=== PATIENT | male | born 1990 | race American Indian/Alaskan Native ===

== ENCOUNTER 2019-02-14 02:17 | Emergency (ER) | payer SELFPAY ==
[2019-02-14] MEDS ORDERED: Sodium Chloride 0.9% 10 ML Syringe FLUSH PRN (02:39)
[2019-02-14] MEDS ORDERED: Sodium Chloride 0.9% 1,000 ML IV ONE ×2 (02:39→02:58)
[2019-02-14 03:00] LABS: BARBITURATE SCREEN,URINE NEGATIVE (NEGATIVE); BENZODIAZEPINES SCREEN,URINE NEGATIVE (NEGATIVE); EDDP,URINE SCREEN NEGATIVE (NEGATIVE); METHAMPHETAMINE SCREEN, URINE NEGATIVE (NEGATIVE); TCA SCREEN,URINE NEGATIVE (NEGATIVE); THC SCREEN,URINE 50 NG/ML NEGATIVE (NEGATIVE)
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
[2019-02-14 03:17] LABS: CHLORIDE,CL 107 mmol/L (98-107); SODIUM,NA 144 mmol/L (136-145)
[2019-02-14 03:18] LABS: ANION GAP 17.4 mmol/L (10-20)
== END 2019-02-14 03:45 ==
LOC: VM.ED 02:17
DX: F10.129 Alcohol abuse with intoxication, unspecified (principal); Y90.8 Blood alcohol level of 240 mg/100 ml or more
CPT/HCPCS: 36415; 80053; 80305; 80320; 83735; 85025; 96360; 99285; J7030; 99283-GF; G0480

== ENCOUNTER 2019-07-17 20:46 | Emergency (ER) | payer OTHER ==
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
== END 2019-07-17 21:00 | disposition home or self-care (01) ==
LOC: VM.ED 20:46
DX: Z02.89 Encounter for other administrative examinations (principal)
CPT/HCPCS: 99283; 99283-GF

== ENCOUNTER 2019-09-17 18:57 | Emergency (ER) | payer SELFPAY ==
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
== END 2019-09-17 19:20 ==
LOC: VM.ED 18:57
DX: F10.920 Alcohol use, unspecified with intoxication, uncomplicated (principal); E11.9 Type 2 diabetes mellitus without complications
CPT/HCPCS: 99283-GF; 99284

== ENCOUNTER 2021-02-15 18:54 | Observation (INO) | payer MEDICAID ==
[2021-02-15] MEDS ORDERED: Sodium Chloride 0.9% 10 ML Syringe FLUSH PRN (19:56)
[2021-02-15] MEDS ORDERED: Lactated Ringers 1,000 ML IV ONE (20:02)
[2021-02-15] MEDS ORDERED: Lactulose Soln 10 GM/15 ML 30 ML UD Cup PO ONE ×2 (20:12→20:25)
[2021-02-15] MEDS ORDERED: Iopamidol 612 MG/ML 100 ML Bottle IVPUSH ONE (20:13)
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
[2021-02-15 20:47] LABS: PTT,PARTIAL THROMBOPLSTIN TIME 33.6 SEC (25.6-32.8)
[2021-02-15] MEDS ORDERED: cefTRIAXone 1 GM Vial IVPUSH ONE (20:54)
[2021-02-15 21:00] LABS: CHLORIDE,CL 98 mmol/L (98-107); SODIUM,NA 133 mmol/L (136-145)
[2021-02-15 21:04] LABS: ANION GAP 7.6 mmol/L (5-15)
[2021-02-15 21:05] LABS: ACETAMINOPHEN 0 ug/ml (10-30)
--- NOTE | 2021-02-15 21:24 | CT ---
[id number] CT/CT Abdomen Pelvis W IV EXAM: CT Abdomen Pelvis W IV CLINICAL DATA: RUQ PAIN COMPARISON STUDY: None. FINDINGS: Hepatomegaly and diffuse steatosis. Heterogeneous parenchymal enhancement can also be seen with underlying hepatocellular disease. Portal hypertension, including borderline splenomegaly, portal vein dilation up to 18 mm, recanalization of umbilical vein, varices in the upper abdomen, and ascites. Diffuse gallbladder wall thickening/edema. Edematous appearance of the proximal small bowel wall, and ascending segment of the colon. Those findings can also be seen with changes of portal hypertension. No evidence of viscus perforation. No drainable fluid collection. IMPRESSION: Hepatomegaly and abnormal parenchymal density/enhancement consistent with underlying steatosis and/or hepatocellular disease. Changes of portal hypertension, described in detail above. Correlate with LFTs. Joe Vazquez MD 02/15/21 [id number] Thank you for allowing us to participate in the care of your patient.
[2021-02-15] MEDS: Sodium Chloride 0.9% 1,000 ML IV SCH (23:15)
[2021-02-16] MEDS: Sodium Chloride 0.9% 1,000 ML IV SCH ×2 (05:57→19:05)
[2021-02-16 07:02] LABS: HEMOGLOBIN A1C 9.2 % (<5.7)
[2021-02-16 07:18] LABS: ANION GAP 8.7 mmol/L (5-15); CHLORIDE,CL 102 mmol/L (98-107); SODIUM,NA 135 mmol/L (136-145)
[2021-02-16] MEDS: Lactulose Soln 10 GM/15 ML 30 ML UD Cup PO SCH ×3 (08:00→20:31)
[2021-02-16] MEDS ORDERED: cefTRIAXone 1 GM Vial IVPUSH SCH ×2 (10:00→20:00)
--- NOTE | 2021-02-16 14:48 | PCM.PN ---
- General Info Date of Service: 02/16/21 Admission Dx/Problem (Free Text): Hyperbilirubinemia Elevated ammonia UTI Subjective Update: This is hospital day 1 of this patient who was admitted for acute hyperbilirubinemia in the presence of most likely alcoholic hepatitis. Patient has been hydrated with fluid over the night. And started on lactulose. He actually feels quite a bit better today. He has had no nausea or vomiting. His abdominal pain is resolved. He has been very hungry and thirsty most of the day. He has had about 5-7 bowel movements today that have been quite loose. He actually feels very good than when he initially came in. He has no fever no chills. No chest pain no shortness of breath or difficulty breathing. No hematuria dysuria urinary frequency. No itching. No confusions hallucinations. The sleepiness that he had yesterday has resolved. He has had an excellent appetite and he has been eating quite a bit today. - Patient Data Vitals - Most Recent: Last Vital Signs Temp 97.9 F 02/16/21 11:27 Pulse 84 02/16/21 11:27 Resp 21 H 02/16/21 11:27 BP 100/51 L 02/16/21 11:27 Pulse Ox 96 02/16/21 11:27 Weight - Most Recent: 158 lb I&O - Last 24 Hours: Intake & Output 02/15/21 02/16/21 02/16/21 22:59 06:59 14:59 Intake Total 1000 1000 120 Balance 1000 1000 120 Lab Results Last 24 Hours: Laboratory Results - last 24 hr 02/15/21 02/15/21 02/15/21 Range/Units 20:00 20:05 20:05 WBC 10.9 H (4.0-10.0) x10^3/uL RBC 3.90 L (4.5-6.0) x10^6/uL Hgb 13.5 L (14.0-18.0) g/dL Hct 37.9 L (40.0-52.0) % MCV 97.2 H (78.0-93.0) fL MCH 34.6 H (26.0-32.0) pg MCHC 35.6 (32.0-36.0) g/dL RDW Coeff of Dusty 14.6 (10.0-15.0) % Plt Count 302 (130-400) x10^3/uL Immature Gran % (Auto) 0.20 (0.00-0.43) % Neut % (Auto) 69.8 (50.0-80.0) % Lymph % (Auto) 16.3 L (25.0-50.0) % Hill % (Auto) 10.7 (2.0-11.0) % Eos % (Auto) 2.4 (0.0-4.0) % Baso % (Auto) 0.6 (0.2-1.2) % Neut # (Auto) 7.6 (1.8-7.7) x10^3/uL Lymph # (Auto) 1.8 (1.0-4.8) x10^3/uL Hill # (Auto) 1.2 H (0.0-0.8) x10^3/uL Eos # (Auto) 0.3 (0.0-0.5) x10^3/uL Baso # (Auto) 0.1 (0.0-0.2) x10^3/uL Immature Gran # (Auto) 0.02 (0.00-0.07) x10^3/uL PT 16.6 H (9.9-12.5) SEC INR 1.5 L (2.0-3.5) APTT 33.6 H (25.6-32.8) SEC Sodium (136-145) mmol/L Potassium (3.5-5.1) mmol/L Chloride (98-107) mmol/L Carbon Dioxide (21-32) mmol/L Anion Gap (5-15) mmol/L BUN (7-18) mg/dL Creatinine (0.70-1.30) mg/dL Est Cr Clr Drug Dosing mL/min Estimated GFR (MDRD) Glucose (70-99) mg/dL POC Glucose (70-99) mg/dL Hemoglobin A1c (<5.7) % Lactic Acid (0.4-2.0) mmol/L Calcium (8.5-10.1) mg/dL Corrected Calcium (8.5-10.1) mg/dL Phosphorus (2.6-4.7) mg/dL Total Bilirubin (0.2-1.0) mg/dL Direct Bilirubin (0.00-0.20) mg/dL AST (15-37) U/L ALT (16-63) U/L Alkaline Phosphatase (46-116) U/L Ammonia (19-54) ug/dL Total Protein (6.4-8.2) g/dL Albumin (3.4-5.0) g/dL Globulin Albumin/Globulin Ratio Lipase (73-393) U/L Urine Color Brown H (YELLOW) Urine Appearance Slightly cloudy H (CLEAR) Urine pH 6.0 (5.0-8.0) Ur Specific Franklin 1.020 Urine Protein 100 H (NEGATIVE) mg/dL Urine Glucose (UA) 100 H (NEGATIVE) mg/dL Urine Ketones 15 H (NEGATIVE) mg/dL Urine Occult Blood Negative (NEGATIVE) Urine Nitrite Negative (NEGATIVE) Urine Bilirubin Large H (NEGATIVE) Urine Urobilinogen 1.0 (0.2) EU/dL Ur Leukocyte Esterase Large H (NEGATIVE) U Hyaline Cast (Auto) Few Urine RBC 0-5 (NOT SEEN) /HPF Urine WBC 10-20 H (NOT SEEN) /HPF Ur Squamous Epith Cells Rare (NOT SEEN) /HPF Amorphous Sediment Rare Urine Bacteria Occasional H (NOT SEEN) /HPF Urine Mucus Few H (NOT SEEN) /LPF Acetaminophen (10-30) ug/ml Ethyl Alcohol (0-3) mg/dL SARS CoV-2 RNA Rapid DIYA (NEGATIVE) SHAD, Poly Interpret Direct AHG Gel w SADE 02/15/21 02/15/21 02/15/21 Range/Units 20:05 20:05 20:05 WBC (4.0-10.0) x10^3/uL RBC (4.5-6.0) x10^6/uL Hgb (14.0-18.0) g/dL Hct (40.0-52.0) % MCV (78.0-93.0) fL MCH (26.0-32.0) pg MCHC (32.0-36.0) g/dL RDW Coeff of Dusty (10.0-15.0) % Plt Count (130-400) x10^3/uL Immature Gran % (Auto) (0.00-0.43) % Neut % (Auto) (50.0-80.0) % Lymph % (Auto) (25.0-50.0) % Hill % (Auto) (2.0-11.0) % Eos % (Auto) (0.0-4.0) % Baso % (Auto) (0.2-1.2) % Neut # (Auto) (1.8-7.7) x10^3/uL Lymph # (Auto) (1.0-4.8) x10^3/uL Hill # (Auto) (0.0-0.8) x10^3/uL Eos # (Auto) (0.0-0.5) x10^3/uL Baso # (Auto) (0.0-0.2) x10^3/uL Immature Gran # (Auto) (0.00-0.07) x10^3/uL PT (9.9-12.5) SEC INR (2.0-3.5) APTT (25.6-32.8) SEC Sodium 133 L (136-145) mmol/L Potassium 3.6 (3.5-5.1) mmol/L Chloride 98 (98-107) mmol/L Carbon Dioxide 31 D (21-32) mmol/L Anion Gap 7.6 (5-15) mmol/L BUN 6 L (7-18) mg/dL Creatinine 0.6 L (0.70-1.30) mg/dL Est Cr Clr Drug Dosing 169.84 mL/min Estimated GFR (MDRD) > 60 Glucose 144 H (70-99) mg/dL POC Glucose (70-99) mg/dL Hemoglobin A1c (<5.7) % Lactic Acid 1.8 (0.4-2.0) mmol/L Calcium 7.8 L (8.5-10.1) mg/dL Corrected Calcium 9.1 (8.5-10.1) mg/dL Phosphorus (2.6-4.7) mg/dL Total Bilirubin 25.7 H* (0.2-1.0) mg/dL Direct Bilirubin 20.82 H (0.00-0.20) mg/dL AST 231 H (15-37) U/L ALT 261 H (16-63) U/L Alkaline Phosphatase 194 H (46-116) U/L Ammonia 31 (19-54) ug/dL Total Protein 6.8 (6.4-8.2) g/dL Albumin 2.4 L (3.4-5.0) g/dL Globulin 4.4 Albumin/Globulin Ratio 0.55 Lipase 38 L (73-393) U/L Urine Color (YELLOW) Urine Appearance (CLEAR) Urine pH (5.0-8.0) Ur Specific Franklin Urine Protein (NEGATIVE) mg/dL Urine Glucose (UA) (NEGATIVE) mg/dL Urine Ketones (NEGATIVE) mg/dL Urine Occult Blood (NEGATIVE) Urine Nitrite (NEGATIVE) Urine Bilirubin (NEGATIVE) Urine Urobilinogen (0.2) EU/dL Ur Leukocyte Esterase (NEGATIVE) U Hyaline Cast (Auto) Urine RBC (NOT SEEN) /HPF Urine WBC (NOT SEEN) /HPF Ur Squamous Epith Cells (NOT SEEN) /HPF Amorphous Sediment Urine Bacteria (NOT SEEN) /HPF Urine Mucus (NOT SEEN) /LPF Acetaminophen 0 L (10-30) ug/ml Ethyl Alcohol < 3 (0-3) mg/dL SARS CoV-2 RNA Rapid DIYA (NEGATIVE) SHAD, Poly Interpret Direct AHG Gel w SADE 02/15/21 02/15/21 02/16/21 Range/Units 20:05 22:46 06:45 WBC 9.4 (4.0-10.0) x10^3/uL RBC 3.42 L (4.5-6.0) x10^6/uL Hgb 11.8 L D (14.0-18.0) g/dL Hct 33.2 L (40.0-52.0) % MCV 97.1 H (78.0-93.0) fL MCH 34.5 H (26.0-32.0) pg MCHC 35.5 (32.0-36.0) g/dL RDW Coeff of Dusty 14.8 (10.0-15.0) % Plt Count 241 (130-400) x10^3/uL Immature Gran % (Auto) 0.10 (0.00-0.43) % Neut % (Auto) 68.7 (50.0-80.0) % Lymph % (Auto) 15.9 L (25.0-50.0) % Hill % (Auto) 11.4 H (2.0-11.0) % Eos % (Auto) 3.2 (0.0-4.0) % Baso % (Auto) 0.7 (0.2-1.2) % Neut # (Auto) 6.5 (1.8-7.7) x10^3/uL Lymph # (Auto) 1.5 (1.0-4.8) x10^3/uL Hill # (Auto) 1.1 H (0.0-0.8) x10^3/uL Eos # (Auto) 0.3 (0.0-0.5) x10^3/uL Baso # (Auto) 0.1 (0.0-0.2) x10^3/uL Immature Gran # (Auto) 0.01 (0.00-0.07) x10^3/uL PT (9.9-12.5) SEC INR (2.0-3.5) APTT (25.6-32.8) SEC Sodium (136-145) mmol/L Potassium (3.5-5.1) mmol/L Chloride (98-107) mmol/L Carbon Dioxide (21-32) mmol/L Anion Gap (5-15) mmol/L BUN (7-18) mg/dL Creatinine (0.70-1.30) mg/dL Est Cr Clr Drug Dosing mL/min Estimated GFR (MDRD) Glucose (70-99) mg/dL POC Glucose (70-99) mg/dL Hemoglobin A1c (<5.7) % Lactic Acid (0.4-2.0) mmol/L Calcium (8.5-10.1) mg/dL Corrected Calcium (8.5-10.1) mg/dL Phosphorus (2.6-4.7) mg/dL Total Bilirubin (0.2-1.0) mg/dL Direct Bilirubin (0.00-0.20) mg/dL AST (15-37) U/L ALT (16-63) U/L Alkaline Phosphatase (46-116) U/L Ammonia (19-54) ug/dL Total Protein (6.4-8.2) g/dL Albumin (3.4-5.0) g/dL Globulin Albumin/Globulin Ratio Lipase (73-393) U/L Urine Color (YELLOW) Urine Appearance (CLEAR) Urine pH (5.0-8.0) Ur Specific Franklin Urine Protein (NEGATIVE) mg/dL Urine Glucose (UA) (NEGATIVE) mg/dL Urine Ketones (NEGATIVE) mg/dL Urine Occult Blood (NEGATIVE) Urine Nitrite (NEGATIVE) Urine Bilirubin (NEGATIVE) Urine Urobilinogen (0.2) EU/dL Ur Leukocyte Esterase (NEGATIVE) U Hyaline Cast (Auto) Urine RBC (NOT SEEN) /HPF Urine WBC (NOT SEEN) /HPF Ur Squamous Epith Cells (NOT SEEN) /HPF Amorphous Sediment Urine Bacteria (NOT SEEN) /HPF Urine Mucus (NOT SEEN) /LPF Acetaminophen (10-30) ug/ml Ethyl Alcohol (0-3) mg/dL SARS CoV-2 RNA Rapid DIYA Negative (NEGATIVE) SHAD, Poly Interpret Direct AHG Gel w SADE Positive 02/16/21 02/16/21 02/16/21 Range/Units 06:45 06:45 06:45 WBC (4.0-10.0) x10^3/uL RBC (4.5-6.0) x10^6/uL Hgb (14.0-18.0) g/dL Hct (40.0-52.0) % MCV (78.0-93.0) fL MCH (26.0-32.0) pg MCHC (32.0-36.0) g/dL RDW Coeff of Dusty (10.0-15.0) % Plt Count (130-400) x10^3/uL Immature Gran % (Auto) (0.00-0.43) % Neut % (Auto) (50.0-80.0) % Lymph % (Auto) (25.0-50.0) % Hill % (Auto) (2.0-11.0) % Eos % (Auto) (0.0-4.0) % Baso % (Auto) (0.2-1.2) % Neut # (Auto) (1.8-7.7) x10^3/uL Lymph # (Auto) (1.0-4.8) x10^3/uL Hill # (Auto) (0.0-0.8) x10^3/uL Eos # (Auto) (0.0-0.5) x10^3/uL Baso # (Auto) (0.0-0.2) x10^3/uL Immature Gran # (Auto) (0.00-0.07) x10^3/uL PT (9.9-12.5) SEC INR (2.0-3.5) APTT (25.6-32.8) SEC Sodium 135 L (136-145) mmol/L Potassium 3.7 (3.5-5.1) mmol/L Chloride 102 (98-107) mmol/L Carbon Dioxide 28 (21-32) mmol/L Anion Gap 8.7 (5-15) mmol/L BUN 6 L (7-18) mg/dL Creatinine 0.5 L (0.70-1.30) mg/dL Est Cr Clr Drug Dosing 203.81 mL/min Estimated GFR (MDRD) > 60 Glucose 184 H (70-99) mg/dL POC Glucose (70-99) mg/dL Hemoglobin A1c (<5.7) % Lactic Acid 1.8 (0.4-2.0) mmol/L Calcium 7.2 L (8.5-10.1) mg/dL Corrected Calcium 8.9 (8.5-10.1) mg/dL Phosphorus 3.1 (2.6-4.7) mg/dL Total Bilirubin 21.0 H* (0.2-1.0) mg/dL Direct Bilirubin 15.46 H (0.00-0.20) mg/dL AST 175 H (15-37) U/L ALT 195 H (16-63) U/L Alkaline Phosphatase 147 H (46-116) U/L Ammonia 102 H (19-54) ug/dL Total Protein 5.5 L (6.4-8.2) g/dL Albumin 1.9 L (3.4-5.0) g/dL Globulin 3.6 Albumin/Globulin Ratio 0.53 Lipase (73-393) U/L Urine Color (YELLOW) Urine Appearance (CLEAR) Urine pH (5.0-8.0) Ur Specific Franklin Urine Protein (NEGATIVE) mg/dL Urine Glucose (UA) (NEGATIVE) mg/dL Urine Ketones (NEGATIVE) mg/dL Urine Occult Blood (NEGATIVE) Urine Nitrite (NEGATIVE) Urine Bilirubin (NEGATIVE) Urine Urobilinogen (0.2) EU/dL Ur Leukocyte Esterase (NEGATIVE) U Hyaline Cast (Auto) Urine RBC (NOT SEEN) /HPF Urine WBC (NOT SEEN) /HPF Ur Squamous Epith Cells (NOT SEEN) /HPF Amorphous Sediment Urine Bacteria (NOT SEEN) /HPF Urine Mucus (NOT SEEN) /LPF Acetaminophen (10-30) ug/ml Ethyl Alcohol (0-3) mg/dL SARS CoV-2 RNA Rapid DIYA (NEGATIVE) SHAD, Poly Interpret Direct AHG Gel w SADE 02/16/21 02/16/21 Range/Units 06:45 11:44 WBC (4.0-10.0) x10^3/uL RBC (4.5-6.0) x10^6/uL Hgb (14.0-18.0) g/dL Hct (40.0-52.0) % MCV (78.0-93.0) fL MCH (26.0-32.0) pg MCHC (32.0-36.0) g/dL RDW Coeff of Dusty (10.0-15.0) % Plt Count (130-400) x10^3/uL Immature Gran % (Auto) (0.00-0.43) % Neut % (Auto) (50.0-80.0) % Lymph % (Auto) (25.0-50.0) % Hill % (Auto) (2.0-11.0) % Eos % (Auto) (0.0-4.0) % Baso % (Auto) (0.2-1.2) % Neut # (Auto) (1.8-7.7) x10^3/uL Lymph # (Auto) (1.0-4.8) x10^3/uL Hill # (Auto) (0.0-0.8) x10^3/uL Eos # (Auto) (0.0-0.5) x10^3/uL Baso # (Auto) (0.0-0.2) x10^3/uL Immature Gran # (Auto) (0.00-0.07) x10^3/uL PT (9.9-12.5) SEC INR (2.0-3.5) APTT (25.6-32.8) SEC Sodium (136-145) mmol/L Potassium (3.5-5.1) mmol/L Chloride (98-107) mmol/L Carbon Dioxide (21-32) mmol/L Anion Gap (5-15) mmol/L BUN (7-18) mg/dL Creatinine (0.70-1.30) mg/dL Est Cr Clr Drug Dosing mL/min Estimated GFR (MDRD) Glucose (70-99) mg/dL POC Glucose 109 H (70-99) mg/dL Hemoglobin A1c 9.2 H (<5.7) % Lactic Acid (0.4-2.0) mmol/L Calcium (8.5-10.1) mg/dL Corrected Calcium (8.5-10.1) mg/dL Phosphorus (2.6-4.7) mg/dL Total Bilirubin (0.2-1.0) mg/dL Direct Bilirubin (0.00-0.20) mg/dL AST (15-37) U/L ALT (16-63) U/L Alkaline Phosphatase (46-116) U/L Ammonia (19-54) ug/dL Total Protein (6.4-8.2) g/dL Albumin (3.4-5.0) g/dL Globulin Albumin/Globulin Ratio Lipase (73-393) U/L Urine Color (YELLOW) Urine Appearance (CLEAR) Urine pH (5.0-8.0) Ur Specific Franklin Urine Protein (NEGATIVE) mg/dL Urine Glucose (UA) (NEGATIVE) mg/dL Urine Ketones (NEGATIVE) mg/dL Urine Occult Blood (NEGATIVE) Urine Nitrite (NEGATIVE) Urine Bilirubin (NEGATIVE) Urine Urobilinogen (0.2) EU/dL Ur Leukocyte Esterase (NEGATIVE) U Hyaline Cast (Auto) Urine RBC (NOT SEEN) /HPF Urine WBC (NOT SEEN) /HPF Ur Squamous Epith Cells (NOT SEEN) /HPF Amorphous Sediment Urine Bacteria (NOT SEEN) /HPF Urine Mucus (NOT SEEN) /LPF Acetaminophen (10-30) ug/ml Ethyl Alcohol (0-3) mg/dL SARS CoV-2 RNA Rapid DIYA (NEGATIVE) SHAD, Poly Interpret Direct AHG Gel w SADE Iggy Results Last 24 Hours: Microbiology 02/15/21 20:00 Urine Culture - Preliminary Urine, Voided NO GROWTH AFTER 1 DAY Med Orders - Current: Current Medications Ceftriaxone Sodium (Ceftriaxone 1 Gm Vial) 1 gm IVPUSH BID FRANTZ Sodium Chloride (Normal Saline) 1,000 mls @ 150 mls/hr IV ASDIRECTED FRANTZ Last Admin: 02/16/21 05:57 Dose: 150 mls/hr Documented by: Lactulose (Lactulose Soln 10 Gm/15 Ml 30 Ml Ud Cup) 20 gm PO TID FRANTZ Last Admin: 02/16/21 11:26 Dose: 20 gm Documented by: Sodium Chloride (Sodium Chloride 0.9% 10 Ml Syringe) 10 ml FLUSH ASDIRECTED PRN PRN Reason: Keep Vein Open Last Admin: 02/16/21 11:27 Dose: 10 ml Documented by: Discontinued Medications Ceftriaxone Sodium (Ceftriaxone 1 Gm Vial) 1 gm IVPUSH STAT ONE Stop: 02/15/21 20:55 Last Admin: 02/15/21 21:04 Dose: 1 gm Documented by: Ceftriaxone Sodium (Ceftriaxone 1 Gm Vial) 1 gm IVPUSH DAILY FRANTZ Last Admin: 02/16/21 11:27 Dose: 1 gm Documented by: Lactated Ringer's (Ringers, Lactated) 1,000 mls @ 999 mls/hr IV ONETIME ONE Stop: 02/15/21 21:02 Last Admin: 02/15/21 20:10 Dose: 999 mls/hr Documented by: Iopamidol (Iopamidol 612 Mg/Ml 100 Ml Bottle) 100 ml IVPUSH ONETIME ONE Stop: 02/15/21 20:14 Last Admin: 02/15/21 20:33 Dose: 100 ml Documented by: Lactulose (Lactulose Soln 10 Gm/15 Ml 30 Ml Ud Cup) 20 gm PO ONETIME ONE Stop: 02/15/21 20:13 Last Admin: 02/15/21 20:42 Dose: 20 gm Documented by: Lactulose (Lactulose Soln 10 Gm/15 Ml 30 Ml Ud Cup) 20 gm PO ONETIME ONE Stop: 02/15/21 20:26 Last Admin: 02/16/21 02:35 Dose: 20 gm Documented by: - Exam General: Alert, Oriented HEENT: Pupils Equal, Pupils Reactive, Other (The jaundiced icteric sclera is quite a bit improved today. It is still present although markedly improved) Neck: Supple Lungs: Clear to Auscultation, Normal Respiratory Effort Cardiovascular: Regular Rate, Regular Rhythm GI/Abdominal Exam: Normal Bowel Sounds, Soft, Non-Tender, Hepatomegaly (Male) Exam: Deferred Back Exam: Normal Inspection, Full Range of Motion Extremities: Normal Inspection, Normal Range of Motion, Non-Tender, No Pedal Edema, Normal Capillary Refill Peripheral Pulses: 2+: Radial (L), Radial (R), Posterior Tibial (L), Posterior Tibial (R), Dorsalis Pedis (L), Dorsalis Pedis (R) Skin: Warm, Dry, Intact Neurological: No New Focal Deficit Psy/Mental Status: Alert, Normal Affect, Normal Mood Physical Findings Comments:: The patient skin jaundice is surprisingly improved from yesterday. He primarily has jaundice of the face he has a very faint aspect of jaundice to his extremities and his chest but this is markedly improved since yesterday. - Patient Data Lab Results Last 24 hrs: Laboratory Results - last 24 hr 02/15/21 02/15/21 02/15/21 Range/Units 20:00 20:05 20:05 WBC 10.9 H (4.0-10.0) x10^3/uL RBC 3.90 L (4.5-6.0) x10^6/uL Hgb 13.5 L (14.0-18.0) g/dL Hct 37.9 L (40.0-52.0) % MCV 97.2 H (78.0-93.0) fL MCH 34.6 H (26.0-32.0) pg MCHC 35.6 (32.0-36.0) g/dL RDW Coeff of Dusty 14.6 (10.0-15.0) % Plt Count 302 (130-400) x10^3/uL Immature Gran % (Auto) 0.20 (0.00-0.43) % Neut % (Auto) 69.8 (50.0-80.0) % Lymph % (Auto) 16.3 L (25.0-50.0) % Hill % (Auto) 10.7 (2.0-11.0) % Eos % (Auto) 2.4 (0.0-4.0) % Baso % (Auto) 0.6 (0.2-1.2) % Neut # (Auto) 7.6 (1.8-7.7) x10^3/uL Lymph # (Auto) 1.8 (1.0-4.8) x10^3/uL Hill # (Auto) 1.2 H (0.0-0.8) x10^3/uL Eos # (Auto) 0.3 (0.0-0.5) x10^3/uL Baso # (Auto) 0.1 (0.0-0.2) x10^3/uL Immature Gran # (Auto) 0.02 (0.00-0.07) x10^3/uL PT 16.6 H (9.9-12.5) SEC INR 1.5 L (2.0-3.5) APTT 33.6 H (25.6-32.8) SEC Sodium (136-145) mmol/L Potassium (3.5-5.1) mmol/L Chloride (98-107) mmol/L Carbon Dioxide (21-32) mmol/L Anion Gap (5-15) mmol/L BUN (7-18) mg/dL Creatinine (0.70-1.30) mg/dL Est Cr Clr Drug Dosing mL/min Estimated GFR (MDRD) Glucose (70-99) mg/dL POC Glucose (70-99) mg/dL Hemoglobin A1c (<5.7) % Lactic Acid (0.4-2.0) mmol/L Calcium (8.5-10.1) mg/dL Corrected Calcium (8.5-10.1) mg/dL Phosphorus (2.6-4.7) mg/dL Total Bilirubin (0.2-1.0) mg/dL Direct Bilirubin (0.00-0.20) mg/dL AST (15-37) U/L ALT (16-63) U/L Alkaline Phosphatase (46-116) U/L Ammonia (19-54) ug/dL Total Protein (6.4-8.2) g/dL Albumin (3.4-5.0) g/dL Globulin Albumin/Globulin Ratio Lipase (73-393) U/L Urine Color Brown H (YELLOW) Urine Appearance Slightly cloudy H (CLEAR) Urine pH 6.0 (5.0-8.0) Ur Specific [place] 1.020 Urine Protein 100 H (NEGATIVE) mg/dL Urine Glucose (UA) 100 H (NEGATIVE) mg/dL Urine Ketones 15 H (NEGATIVE) mg/dL Urine Occult Blood Negative (NEGATIVE) Urine Nitrite Negative (NEGATIVE) Urine Bilirubin Large H (NEGATIVE) Urine Urobilinogen 1.0 (0.2) EU/dL Ur Leukocyte Esterase Large H (NEGATIVE) U Hyaline Cast (Auto) Few Urine RBC 0-5 (NOT SEEN) /HPF Urine WBC 10-20 H (NOT SEEN) /HPF Ur Squamous Epith Cells Rare (NOT SEEN) /HPF Amorphous Sediment Rare Urine Bacteria Occasional H (NOT SEEN) /HPF Urine Mucus Few H (NOT SEEN) /LPF Acetaminophen (10-30) ug/ml Ethyl Alcohol (0-3) mg/dL SARS CoV-2 RNA Rapid DIYA (NEGATIVE) SHAD, Poly Interpret Direct AHG Gel w SADE 02/15/21 02/15/21 02/15/21 Range/Units 20:05 20:05 20:05 WBC (4.0-10.0) x10^3/uL RBC (4.5-6.0) x10^6/uL Hgb (14.0-18.0) g/dL Hct (40.0-52.0) % MCV (78.0-93.0) fL MCH (26.0-32.0) pg MCHC (32.0-36.0) g/dL RDW Coeff of Dusty (10.0-15.0) % Plt Count (130-400) x10^3/uL Immature Gran % (Auto) (0.00-0.43) % Neut % (Auto) (50.0-80.0) % Lymph % (Auto) (25.0-50.0) % Hill % (Auto) (2.0-11.0) % Eos % (Auto) (0.0-4.0) % Baso % (Auto) (0.2-1.2) % Neut # (Auto) (1.8-7.7) x10^3/uL Lymph # (Auto) (1.0-4.8) x10^3/uL Hill # (Auto) (0.0-0.8) x10^3/uL Eos # (Auto) (0.0-0.5) x10^3/uL Baso # (Auto) (0.0-0.2) x10^3/uL Immature Gran # (Auto) (0.00-0.07) x10^3/uL PT (9.9-12.5) SEC INR (2.0-3.5) APTT (25.6-32.8) SEC Sodium 133 L (136-145) mmol/L Potassium 3.6 (3.5-5.1) mmol/L Chloride 98 (98-107) mmol/L Carbon Dioxide 31 D (21-32) mmol/L Anion Gap 7.6 (5-15) mmol/L BUN 6 L (7-18) mg/dL Creatinine 0.6 L (0.70-1.30) mg/dL Est Cr Clr Drug Dosing 169.84 mL/min Estimated GFR (MDRD) > 60 Glucose 144 H (70-99) mg/dL POC Glucose (70-99) mg/dL Hemoglobin A1c (<5.7) % Lactic Acid 1.8 (0.4-2.0) mmol/L Calcium 7.8 L (8.5-10.1) mg/dL Corrected Calcium 9.1 (8.5-10.1) mg/dL Phosphorus (2.6-4.7) mg/dL Total Bilirubin 25.7 H* (0.2-1.0) mg/dL Direct Bilirubin 20.82 H (0.00-0.20) mg/dL AST 231 H (15-37) U/L ALT 261 H (16-63) U/L Alkaline Phosphatase 194 H (46-116) U/L Ammonia 31 (19-54) ug/dL Total Protein 6.8 (6.4-8.2) g/dL Albumin 2.4 L (3.4-5.0) g/dL Globulin 4.4 Albumin/Globulin Ratio 0.55 Lipase 38 L (73-393) U/L Urine Color (YELLOW) Urine Appearance (CLEAR) Urine pH (5.0-8.0) Ur Specific [place] Urine Protein (NEGATIVE) mg/dL Urine Glucose (UA) (NEGATIVE) mg/dL Urine Ketones (NEGATIVE) mg/dL Urine Occult Blood (NEGATIVE) Urine Nitrite (NEGATIVE) Urine Bilirubin (NEGATIVE) Urine Urobilinogen (0.2) EU/dL Ur Leukocyte Esterase (NEGATIVE) U Hyaline Cast (Auto) Urine RBC (NOT SEEN) /HPF Urine WBC (NOT SEEN) /HPF Ur Squamous Epith Cells (NOT SEEN) /HPF Amorphous Sediment Urine Bacteria (NOT SEEN) /HPF Urine Mucus (NOT SEEN) /LPF Acetaminophen 0 L (10-30) ug/ml Ethyl Alcohol < 3 (0-3) mg/dL SARS CoV-2 RNA Rapid DIYA (NEGATIVE) SHAD, Poly Interpret Direct AHG Gel w SADE 02/15/21 02/15/21 02/16/21 Range/Units 20:05 22:46 06:45 WBC 9.4 (4.0-10.0) x10^3/uL RBC 3.42 L (4.5-6.0) x10^6/uL Hgb 11.8 L D (14.0-18.0) g/dL Hct 33.2 L (40.0-52.0) % MCV 97.1 H (78.0-93.0) fL MCH 34.5 H (26.0-32.0) pg MCHC 35.5 (32.0-36.0) g/dL RDW Coeff of Dusty 14.8 (10.0-15.0) % Plt Count 241 (130-400) x10^3/uL Immature Gran % (Auto) 0.10 (0.00-0.43) % Neut % (Auto) 68.7 (50.0-80.0) % Lymph % (Auto) 15.9 L (25.0-50.0) % Hill % (Auto) 11.4 H (2.0-11.0) % Eos % (Auto) 3.2 (0.0-4.0) % Baso % (Auto) 0.7 (0.2-1.2) % Neut # (Auto) 6.5 (1.8-7.7) x10^3/uL Lymph # (Auto) 1.5 (1.0-4.8) x10^3/uL Hill # (Auto) 1.1 H (0.0-0.8) x10^3/uL Eos # (Auto) 0.3 (0.0-0.5) x10^3/uL Baso # (Auto) 0.1 (0.0-0.2) x10^3/uL Immature Gran # (Auto) 0.01 (0.00-0.07) x10^3/uL PT (9.9-12.5) SEC INR (2.0-3.5) APTT (25.6-32.8) SEC Sodium (136-145) mmol/L Potassium (3.5-5.1) mmol/L Chloride (98-107) mmol/L Carbon Dioxide (21-32) mmol/L Anion Gap (5-15) mmol/L BUN (7-18) mg/dL Creatinine (0.70-1.30) mg/dL Est Cr Clr Drug Dosing mL/min Estimated GFR (MDRD) Glucose (70-99) mg/dL POC Glucose (70-99) mg/dL Hemoglobin A1c (<5.7) % Lactic Acid (0.4-2.0) mmol/L Calcium (8.5-10.1) mg/dL Corrected Calcium (8.5-10.1) mg/dL Phosphorus (2.6-4.7) mg/dL Total Bilirubin (0.2-1.0) mg/dL Direct Bilirubin (0.00-0.20) mg/dL AST (15-37) U/L ALT (16-63) U/L Alkaline Phosphatase (46-116) U/L Ammonia (19-54) ug/dL Total Protein (6.4-8.2) g/dL Albumin (3.4-5.0) g/dL Globulin Albumin/Globulin Ratio Lipase (73-393) U/L Urine Color (YELLOW) Urine Appearance (CLEAR) Urine pH (5.0-8.0) Ur Specific [place] Urine Protein (NEGATIVE) mg/dL Urine Glucose (UA) (NEGATIVE) mg/dL Urine Ketones (NEGATIVE) mg/dL Urine Occult Blood (NEGATIVE) Urine Nitrite (NEGATIVE) Urine Bilirubin (NEGATIVE) Urine Urobilinogen (0.2) EU/dL Ur Leukocyte Esterase (NEGATIVE) U Hyaline Cast (Auto) Urine RBC (NOT SEEN) /HPF Urine WBC (NOT SEEN) /HPF Ur Squamous Epith Cells (NOT SEEN) /HPF Amorphous Sediment Urine Bacteria (NOT SEEN) /HPF Urine Mucus (NOT SEEN) /LPF Acetaminophen (10-30) ug/ml Ethyl Alcohol (0-3) mg/dL SARS CoV-2 RNA Rapid DIYA Negative (NEGATIVE) SHAD, Poly Interpret Direct AHG Gel w SADE Positive 02/16/21 02/16/21 02/16/21 Range/Units 06:45 06:45 06:45 WBC (4.0-10.0) x10^3/uL RBC (4.5-6.0) x10^6/uL Hgb (14.0-18.0) g/dL Hct (40.0-52.0) % MCV (78.0-93.0) fL MCH (26.0-32.0) pg MCHC (32.0-36.0) g/dL RDW Coeff of Dusty (10.0-15.0) % Plt Count (130-400) x10^3/uL Immature Gran % (Auto) (0.00-0.43) % Neut % (Auto) (50.0-80.0) % Lymph % (Auto) (25.0-50.0) % Hill % (Auto) (2.0-11.0) % Eos % (Auto) (0.0-4.0) % Baso % (Auto) (0.2-1.2) % Neut # (Auto) (1.8-7.7) x10^3/uL Lymph # (Auto) (1.0-4.8) x10^3/uL Hill # (Auto) (0.0-0.8) x10^3/uL Eos # (Auto) (0.0-0.5) x10^3/uL Baso # (Auto) (0.0-0.2) x10^3/uL Immature Gran # (Auto) (0.00-0.07) x10^3/uL PT (9.9-12.5) SEC INR (2.0-3.5) APTT (25.6-32.8) SEC Sodium 135 L (136-145) mmol/L Potassium 3.7 (3.5-5.1) mmol/L Chloride 102 (98-107) mmol/L Carbon Dioxide 28 (21-32) mmol/L Anion Gap 8.7 (5-15) mmol/L BUN 6 L (7-18) mg/dL Creatinine 0.5 L (0.70-1.30) mg/dL Est Cr Clr Drug Dosing 203.81 mL/min Estimated GFR (MDRD) > 60 Glucose 184 H (70-99) mg/dL POC Glucose (70-99) mg/dL Hemoglobin A1c (<5.7) % Lactic Acid 1.8 (0.4-2.0) mmol/L Calcium 7.2 L (8.5-10.1) mg/dL Corrected Calcium 8.9 (8.5-10.1) mg/dL Phosphorus 3.1 (2.6-4.7) mg/dL Total Bilirubin 21.0 H* (0.2-1.0) mg/dL Direct Bilirubin 15.46 H (0.00-0.20) mg/dL AST 175 H (15-37) U/L ALT 195 H (16-63) U/L Alkaline Phosphatase 147 H (46-116) U/L Ammonia 102 H (19-54) ug/dL Total Protein 5.5 L (6.4-8.2) g/dL Albumin 1.9 L (3.4-5.0) g/dL Globulin 3.6 Albumin/Globulin Ratio 0.53 Lipase (73-393) U/L Urine Color (YELLOW) Urine Appearance (CLEAR) Urine pH (5.0-8.0) Ur Specific [place] Urine Protein (NEGATIVE) mg/dL Urine Glucose (UA) (NEGATIVE) mg/dL Urine Ketones (NEGATIVE) mg/dL Urine Occult Blood (NEGATIVE) Urine Nitrite (NEGATIVE) Urine Bilirubin (NEGATIVE) Urine Urobilinogen (0.2) EU/dL Ur Leukocyte Esterase (NEGATIVE) U Hyaline Cast (Auto) Urine RBC (NOT SEEN) /HPF Urine WBC (NOT SEEN) /HPF Ur Squamous Epith Cells (NOT SEEN) /HPF Amorphous Sediment Urine Bacteria (NOT SEEN) /HPF Urine Mucus (NOT SEEN) /LPF Acetaminophen (10-30) ug/ml Ethyl Alcohol (0-3) mg/dL SARS CoV-2 RNA Rapid DIYA (NEGATIVE) SHAD, Poly Interpret Direct AHG Gel w SADE 02/16/21 02/16/21 Range/Units 06:45 11:44 WBC (4.0-10.0) x10^3/uL RBC (4.5-6.0) x10^6/uL Hgb (14.0-18.0) g/dL Hct (40.0-52.0) % MCV (78.0-93.0) fL MCH (26.0-32.0) pg MCHC (32.0-36.0) g/dL RDW Coeff of Dusty (10.0-15.0) % Plt Count (130-400) x10^3/uL Immature Gran % (Auto) (0.00-0.43) % Neut % (Auto) (50.0-80.0) % Lymph % (Auto) (25.0-50.0) % Hill % (Auto) (2.0-11.0) % Eos % (Auto) (0.0-4.0) % Baso % (Auto) (0.2-1.2) % Neut # (Auto) (1.8-7.7) x10^3/uL Lymph # (Auto) (1.0-4.8) x10^3/uL Hill # (Auto) (0.0-0.8) x10^3/uL Eos # (Auto) (0.0-0.5) x10^3/uL Baso # (Auto) (0.0-0.2) x10^3/uL Immature Gran # (Auto) (0.00-0.07) x10^3/uL PT (9.9-12.5) SEC INR (2.0-3.5) APTT (25.6-32.8) SEC Sodium (136-145) mmol/L Potassium (3.5-5.1) mmol/L Chloride (98-107) mmol/L Carbon Dioxide (21-32) mmol/L Anion Gap (5-15) mmol/L BUN (7-18) mg/dL Creatinine (0.70-1.30) mg/dL Est Cr Clr Drug Dosing mL/min Estimated GFR (MDRD) Glucose (70-99) mg/dL POC Glucose 109 H (70-99) mg/dL Hemoglobin A1c 9.2 H (<5.7) % Lactic Acid (0.4-2.0) mmol/L Calcium (8.5-10.1) mg/dL Corrected Calcium (8.5-10.1) mg/dL Phosphorus (2.6-4.7) mg/dL Total Bilirubin (0.2-1.0) mg/dL Direct Bilirubin (0.00-0.20) mg/dL AST (15-37) U/L ALT (16-63) U/L Alkaline Phosphatase (46-116) U/L Ammonia (19-54) ug/dL Total Protein (6.4-8.2) g/dL Albumin (3.4-5.0) g/dL Globulin Albumin/Globulin Ratio Lipase (73-393) U/L Urine Color (YELLOW) Urine Appearance (CLEAR) Urine pH (5.0-8.0) Ur Specific Franklin Urine Protein (NEGATIVE) mg/dL Urine Glucose (UA) (NEGATIVE) mg/dL Urine Ketones (NEGATIVE) mg/dL Urine Occult Blood (NEGATIVE) Urine Nitrite (NEGATIVE) Urine Bilirubin (NEGATIVE) Urine Urobilinogen (0.2) EU/dL Ur Leukocyte Esterase (NEGATIVE) U Hyaline Cast (Auto) Urine RBC (NOT SEEN) /HPF Urine WBC (NOT SEEN) /HPF Ur Squamous Epith Cells (NOT SEEN) /HPF Amorphous Sediment Urine Bacteria (NOT SEEN) /HPF Urine Mucus (NOT SEEN) /LPF Acetaminophen (10-30) ug/ml Ethyl Alcohol (0-3) mg/dL SARS CoV-2 RNA Rapid DIYA (NEGATIVE) SHAD, Poly Interpret Direct AHG Gel w SADE Result Diagrams: 02/16/21 06:45 02/16/21 06:45 Igyg Results Last 24 hrs: Microbiology 02/15/21 20:00 Urine Culture - Preliminary Urine, Voided NO GROWTH AFTER 1 DAY Sepsis Event Note - Evaluation Sepsis Screening Result: No Definite Risk - Focused Exam Vital Signs: Vital Signs Temp Pulse Resp BP Pulse Ox 02/16/21 11:27 97.9 F 84 21 H 100/51 L 96 02/16/21 08:00 97.9 F 76 18 112/78 97 - Problem List & Annotations (1) Diabetes SNOMED Code(s): 50613104 Code(s): E11.9 - TYPE 2 DIABETES MELLITUS WITHOUT COMPLICATIONS Status: Acute Annotation/Comment:: Patient has been on a diabetic diet. He has a hemoglobin A1c today of 9.2. His blood sugar this morning was 184. Diabetic diet. Metformin is not ideal in the presence of liver failure. Hold Metformin Start Lantus 15units daily. monitor BS (2) Alcoholic SNOMED Code(s): 9614813 Code(s): F10.20 - ALCOHOL DEPENDENCE, UNCOMPLICATED Status: Acute Annotation/Comment:: No signs of withdrawal at this time. Will start on daily banana pack orally. Consider CD evaluation at some point. (3) Hepatic failure, acute SNOMED Code(s): 377773541 Code(s): K72.00 - ACUTE AND SUBACUTE HEPATIC FAILURE WITHOUT COMA Status: Acute Qualifiers: Hepatic coma status: without hepatic coma Qualified Code(s): K72.00 - Acute and subacute hepatic failure without coma Annotation/Comment:: T bili down to 21. Direct bili down to 15. AST ALT less than 200 as well as alkaline phosphatase. Ammonia 112. We will continue the lactulose 20 g p.o. 3 times daily. MELD score 23 pts with 19.6% 3 month mortality Child-García Score 10 points Class C. Still waiting on possible transfer to [facility]. Had a long discussion with the [facility] today who does not have beds and this patient is not a surgical candidate. No signs of SBP at this time. (4) UTI (urinary tract infection) SNOMED Code(s): 66591495 Code(s): N39.0 - URINARY TRACT INFECTION, SITE NOT SPECIFIED Status: Acute Qualifiers: Urinary tract infection type: site unspecified Hematuria presence: without hematuria Qualified Code(s): N39.0 - Urinary tract infection, site not specified Annotation/Comment:: No urinary symptoms at this time. Urine culture no growth. On Rocephin 1 g twice daily for coverage of a UTI as well as SBP. Although my concern for SBP is low [facility] guidance is to continue this therapy - Problem List Review Problem List Initiated/Reviewed/Updated: Yes - My Orders Last 24 Hours: My Active Orders 02/15/21 19:54 Peripheral IV Insertion Adult [OM.PC] Stat 02/15/21 19:56 Sodium Chloride 0.9% [Saline Flush] 10 ml FLUSH ASDIRECTED PRN 02/15/21 20:00 CULTURE URINE [RM] Stat 02/15/21 20:05 GGT [REF] Stat MISC TEST Routine 02/15/21 21:47 Admission Status [Patient Status] [ADT] Routine 02/15/21 22:24 Height and Weight [RC] .PRN Intake and Output [RC] ,18 Oxygen Therapy [RC] .PRN Up ad Maggie [RC] , Vital Signs [RC] 02,06,10,14,18,22 Antiembolic Hose [OM.PC] Per Unit Routine Resuscitation Status Routine 02/15/21 22:27 Antiembolic Devices [RC] 02/15/21 22:30 Sodium Chloride 0.9% [Normal Saline] 1,000 ml IV ASDIRECTED 02/15/21 23:56 Gallbladder [Abdomen Ltd] [US] Routine 02/16/21 06:45 MISC TEST Routine MISC TEST Stat 02/16/21 08:00 Lactulose [Cephulac] 20 gm PO TID 02/16/21 09:25 Dietary Supplements [RC] 1130,1730 02/16/21 Lunch Regular Diet [DIET] 02/16/21 20:00 cefTRIAXone [Rocephin] 1 gm IVPUSH BID - Assessment Assessment:: A/P I did talk with [facility] again today. The hospitalist had reviewed the patient's chart and felt that this patient is most best served by a transplant center. Although this patient has only been not drinking for 9 days. He has not had an appropriate GI work-up and really is not a candidate for transplant. I was then contacted by the [facility] by Dr. Castle the transplant GI oncology account specialist. I reviewed the case with Dr. Castle and he is in agreement with that this patient is not a transplant candidate at this time and he needs an appropriate GI Work up that can be done in [place] or other center. There is no beds at [facility] at this time and he offered no further guidance and would recommend inpatient management and work up with an ERCP, MRCP and ultrasound none which we have available here in [place]. The [facility] transfer line is still working on bed placement. Unable to get an ultrasound completed today. Hold metformin start lantus Continue Ceftriaxone 1 gram bid VTE: Low risk teds. SEpsis: UTI no signs of sepsis at this time. Monitor with labs. Code Status: Full I am unsure of the time that this patient will need observation. Guidance from the [facility] transplant center is that he needs inpatient evaluation to include a ERCP, MRCP and ultrasound done which are available here in [place]. Still waiting on bed placement and possibility through the [facility] transfer line. MELD 23pts Child García Score Class C. I spoke with Dr. Gipson at [facility] and she does not feel that its appropriate for him with is history of poor follow up without an US to be discharged.
[2021-02-16] MEDS ORDERED: Multivitamins w-Iron/Ca/FA/Min 1 TAB, Thiamine 100 MG, Folic Acid 1 MG, Magnesium Oxide... PO STA ×3 (15:11)
[2021-02-16] MEDS ORDERED: 50% Dextrose in Water 50 ML Syringe IVPUSH PRN (15:12)
[2021-02-16] MEDS ORDERED: Glucagon,Human Recombinant 1 MG Vial IM PRN (15:12)
[2021-02-16] MEDS ORDERED: Insulin Glarg,Human.Rec.Analog 100 Unit/ML SUBCUT SCH (15:15)
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
== END 2021-02-16 21:35 | disposition short-term general hospital (02) ==
LOC: VM.ED 18:54 → VM.MS 21:47
PROVIDERS: ADMIT Nurse Practitioner Family; ATTEND Nurse Practitioner Family
DX: K70.40 Alcoholic hepatic failure without coma (principal); J45.909 Unspecified asthma, uncomplicated; E11.9 Type 2 diabetes mellitus without complications; R16.0 Hepatomegaly, not elsewhere classified; K76.0 Fatty (change of) liver, not elsewhere classified; K76.6 Portal hypertension; F10.20 Alcohol dependence, uncomplicated; N39.0 Urinary tract infection, site not specified; E80.6 Other disorders of bilirubin metabolism; Z79.84 Long term (current) use of oral hypoglycemic drugs; Z88.8 Allergy status to other drugs, medicaments and biological substances; Z88.1 Allergy status to other antibiotic agents; Z79.899 Other long term (current) drug therapy; Z20.822 Contact with and (suspected) exposure to COVID-19
CPT/HCPCS: 36415; 74177; 80053; 80074; 80143; 80307; 81001; 82140; 82248; 82947; 82977; 83036; 83605; 83690; 84100; 85025; 85610; 85730; 86880; 87086; 87536; 96374; 96376; 99285-25; A9270-GY; G0378; J0696; J1815-GY; J7030; J7120; Q9967; U0002

== ENCOUNTER 2021-04-07 05:00 | Emergency (ER) | payer MEDICAID ==
[2021-04-07] MEDS ORDERED: Sodium Chloride 0.9% 1,000 ML IV ONE (05:23)
[2021-04-07] MEDS ORDERED: Sodium Chloride 0.9% 10 ML Syringe FLUSH PRN (05:23)
[2021-04-07] MEDS ORDERED: Ondansetron 4 MG/2 ML SDV IVPUSH ONE ×2 (05:23→08:36)
[2021-04-07] MEDS ORDERED: HYDROmorphone 0.5 MG/0.5 ML Syringe IV ONE (05:30)
--- NOTE | 2021-04-07 05:30 | EDM.PDOC ---
<Marcelino Cheek - Last Filed: 04/07/21 05:20> ED HPI GENERAL MEDICAL PROBLEM - General Chief Complaint: Abdominal Pain Stated Complaint: abdominal pain Time Seen by Provider: 04/07/21 05:19 Source of Information: Reports: Patient History Limitations: Reports: No Limitations - History of Present Illness INITIAL COMMENTS - FREE TEXT/NARRATIVE: Presents to the ED with complaints of left upper quadrant pain. Describes pain as sharp and throbbing. Pain started on Saturday and has progressively worsened. Nausea. Diagnosed with liver failure a couple of months ago. Also history of hep C. Denies chest pain. No recent illness. Denies drinking any alcohol. Reduced appetite. Drinking appropriately. Was to have followed up with GI on Saturday but missed that appointment due to having to work. Onset: Other (saturday) Location: Reports: Abdomen Severity: Moderate Improves with: Reports: Rest Worsens with: Reports: Movement Associated Symptoms: Reports: No Other Symptoms - Related Data Allergies Allergy/AdvReac Type Severity Reaction Status Date / Time amoxicillin [From Augmentin] Allergy Severe Hives Verified 02/15/21 19:40 clavulanic acid Allergy Severe Hives Verified 02/15/21 19:40 [From Augmentin] Home Meds: Home Meds Meloxicam 7.5 mg PO DAILY 02/15/21 [History] metFORMIN [Glucophage] 500 mg PO BID 02/15/21 [History] Hydrocodone/Acetaminophen [HYDROcodone-Acetaminophen 10-325 MG] 1 each PO Q6H PRN #25 tablet 04/07/21 [Rx] Ondansetron [Zofran ODT] 4 mg PO Q6H PRN #15 tab.dis 04/07/21 [Rx] Past Medical History - Past Health History Medical/Surgical History: Denies Medical/Surgical History Respiratory History: Reports: Asthma Musculoskeletal History: Reports: Fracture, Other (See Below) Other Musculoskeletal History: Rught humerous closed Fx Psychiatric History: Reports: Addiction Other Psychiatric History: ETOH abuse, reports last drink 02/08/21 Endocrine/Metabolic History: Reports: Diabetes, Type II Social & Family History - Family History Family Medical History: No Pertinent Family History - Caffeine Use Caffeine Use: Reports: None ED ROS GENERAL - Review of Systems Review Of Systems: See Below Constitutional: Reports: No Symptoms HEENT: Reports: No Symptoms Respiratory: Reports: No Symptoms Cardiovascular: Reports: No Symptoms Endocrine: Reports: No Symptoms GI/Abdominal: Reports: Abdominal Pain, Nausea : Reports: No Symptoms Musculoskeletal: Reports: No Symptoms Skin: Reports: No Symptoms Neurological: Reports: No Symptoms Psychiatric: Reports: No Symptoms Hematologic/Lymphatic: Reports: No Symptoms Immunologic: Reports: No Symptoms ED EXAM, GI/ABD - Physical Exam Exam: See Below Exam Limited By: No Limitations General Appearance: Alert, WD/WN, No Apparent Distress Eyes: Bilateral: Normal Appearance, EOMI Ears: Normal External Exam, Normal Canal, Hearing Grossly Normal, Normal TMs Nose: Normal Inspection, Normal Mucosa, No Blood Throat/Mouth: Normal Inspection, Normal Lips, Normal Teeth, Normal Gums, Normal Oropharynx, Normal Voice, No Airway Compromise Head: Atraumatic, Normocephalic Neck: Normal Inspection, Supple, Non-Tender, Full Range of Motion Respiratory/Chest: No Respiratory Distress, Lungs Clear, Normal Breath Sounds, No Accessory Muscle Use, Chest Non-Tender Cardiovascular: Normal Peripheral Pulses, Regular Rate, Rhythm, No Edema, No Gallop, No JVD, No Murmur, No Rub GI/Abdominal Exam: Normal Bowel Sounds, Soft, No Distention, No Abnormal Bruit, No Mass, Tender Back Exam: Normal Inspection, Full Range of Motion, NT Extremities: Normal Inspection, Normal Range of Motion, Non-Tender, Normal Capillary Refill, No Pedal Edema Neurological: Alert, Oriented, CN II-XII Intact, Normal Cognition, Normal Gait, Normal Reflexes, No Motor/Sensory Deficits Psychiatric: Normal Affect, Normal Mood Skin Exam: Warm, Dry, Intact, Normal Color, No Rash Lymphatic: No Adenopathy #1 Interpretation EKG Date: 04/07/21 Time: 06:01 Rhythm: NSR Rate (Beats/Min): 74 [place]: Normal P-Wave: Present QRS: Normal ST-T: Normal QT: Normal Comparison: NA - No Prior EKG Departure - Departure Disposition: Home, Self-Care 01 Clinical Impression: Pancreatitis, Ileus - Discharge Information Prescriptions: Hydrocodone/Acetaminophen [HYDROcodone-Acetaminophen 10-325 MG] 1 each PO Q6H PRN #25 tablet PRN Reason: Pain (Moderate 4-6) Ondansetron [Zofran ODT] 4 mg PO Q6H PRN #15 tab.dis PRN Reason: Nausea Instructions: Acute Pancreatitis, [id number], Pancreatitis Eating Plan, Clear Liquid Diet, Adult, [id number], [place] Diet Forms: ED Department Discharge Additional Instructions: You have mild pancreatitis on CT scan that is making your bowel lie still. Treatment is clear liquids, no fat diet. Take pain medications as needed for the pain and nausea medications so you can hydrate well. If you are improving and tolerating the clear liquid diet, you can advance to bland low fat diet. These medications cause constipation. Take a stool softener or miralax to prevent constipation. return to the ED for fever, vomiting, inability to take in fluids or worsening pain. DO not drive today or while taking pain medications. DO not drink alcohol <Aylin Humphrey - Last Filed: 04/07/21 08:39> Past Medical History Gastrointestinal History: Reports: Cirrhosis Social & Family History - Alcohol Use Alcohol Use History: Yes Alcohol Use in Last Twelve Months: Yes Alcohol Use Comment: quit in January when diagnosed with liver problems ED EXAM, GI/ABD - Physical Exam GI/Abdominal Exam: Tender (left upper and middle abdomen) Neurological: Normal Reflexes Course - Vital Signs Last Recorded V/S: Last Vital Signs Temp 37.0 C 04/07/21 05:00 Pulse 100 04/07/21 05:00 Resp 18 04/07/21 05:00 BP 123/75 04/07/21 05:00 Pulse Ox 98 04/07/21 05:00 - Orders/Labs/Meds Orders: Active Orders 24 hr Category Date Time Status CULTURE URINE [RM] Stat Lab 04/07/21 05:50 Received Sodium Chloride 0.9% [Saline Flush] Med 04/07/21 05:23 Active 10 ml FLUSH ASDIRECTED PRN Saline Lock Insert [OM.PC] Routine Oth 04/07/21 05:23 Ordered Medication Orders Sodium Chloride (Sodium Chloride 0.9% 10 Ml Syringe) 10 ml FLUSH ASDIRECTED PRN PRN Reason: Keep Vein Open Labs: Laboratory Tests 04/07/21 04/07/21 04/07/21 Range/Units 05:45 05:45 05:45 WBC 7.5 (4.0-10.0) x10^3/uL RBC 3.52 L (4.5-6.0) x10^6/uL Hgb 12.5 L (14.0-18.0) g/dL Hct 34.0 L (40.0-52.0) % MCV 96.6 H (78.0-93.0) fL MCH 35.5 H (26.0-32.0) pg MCHC 36.8 H (32.0-36.0) g/dL RDW Coeff of Dusty 12.3 (10.0-15.0) % Plt Count 125 L D (130-400) x10^3/uL Immature Gran % (Auto) 0.00 (0.00-0.43) % Neut % (Auto) 46.1 L (50.0-80.0) % Lymph % (Auto) 41.8 (25.0-50.0) % [place] % (Auto) 7.6 (2.0-11.0) % Eos % (Auto) 4.0 (0.0-4.0) % Baso % (Auto) 0.5 (0.2-1.2) % Neut # (Auto) 3.5 (1.8-7.7) x10^3/uL Lymph # (Auto) 3.1 (1.0-4.8) x10^3/uL [place] # (Auto) 0.6 (0.0-0.8) x10^3/uL Eos # (Auto) 0.3 (0.0-0.5) x10^3/uL Baso # (Auto) 0.0 (0.0-0.2) x10^3/uL Immature Gran # (Auto) 0.00 (0.00-0.07) x10^3/uL Sodium 138 (136-145) mmol/L Potassium 3.4 L (3.5-5.1) mmol/L Chloride 103 (98-107) mmol/L Carbon Dioxide 26 (21-32) mmol/L Anion Gap 12.4 (5-15) mmol/L BUN 7 (7-18) mg/dL Creatinine 0.8 (0.70-1.30) mg/dL Est Cr Clr Drug Dosing TNP Estimated GFR (MDRD) > 60 Glucose 223 H (70-99) mg/dL Lactic Acid 1.6 (0.4-2.0) mmol/L Calcium 8.6 (8.5-10.1) mg/dL Corrected Calcium 9.7 (8.5-10.1) mg/dL Magnesium 1.7 L (1.8-2.4) mg/dL Total Bilirubin 2.7 H (0.2-1.0) mg/dL AST 28 (15-37) U/L ALT 23 (16-63) U/L Alkaline Phosphatase 143 H (46-116) U/L Ammonia (19-54) ug/dL Troponin I High Sens 6 (<=76) ng/L C-Reactive Protein < 0.2 (<=0.9) mg/dL Total Protein 7.4 (6.4-8.2) g/dL Albumin 2.6 L (3.4-5.0) g/dL Globulin 4.8 Albumin/Globulin Ratio 0.54 Lipase 28 L (73-393) U/L Urine Color (YELLOW) Urine Appearance (CLEAR) Urine pH (5.0-8.0) Ur Specific [place] Urine Protein (NEGATIVE) mg/dL Urine Glucose (UA) (NEGATIVE) mg/dL Urine Ketones (NEGATIVE) mg/dL Urine Occult Blood (NEGATIVE) Urine Nitrite (NEGATIVE) Urine Bilirubin (NEGATIVE) Urine Urobilinogen (0.2) EU/dL Ur Leukocyte Esterase (NEGATIVE) U Hyaline Cast (Auto) Urine RBC (NOT SEEN) /HPF Urine WBC (NOT SEEN) /HPF Ur Squamous Epith Cells (NOT SEEN) /HPF Urine Bacteria (NOT SEEN) /HPF Urine Mucus (NOT SEEN) /LPF Urine Opiates Screen (NEGATIVE) Ur Buprenorphine Scrn (NEGATIVE) Ur Oxycodone Screen (NEGATIVE) Urine Methadone Screen (NEGATIVE) Ur Barbituates Screen (NEGATIVE) Ur Phencyclidine Scrn (NEGATIVE) Ur Amphetamines Screen (NEGATIVE) U Methamphetamines Scrn (NEGATIVE) Urine MDMA Screen (NEGATIVE) U Benzodiazepines Scrn (NEGATIVE) Urine Cocaine Screen (NEGATIVE) U Marijuana (THC) Screen (NEGATIVE) Ethyl Alcohol (0-3) mg/dL 04/07/21 04/07/21 04/07/21 Range/Units 05:45 05:50 05:50 WBC (4.0-10.0) x10^3/uL RBC (4.5-6.0) x10^6/uL Hgb (14.0-18.0) g/dL Hct (40.0-52.0) % MCV (78.0-93.0) fL MCH (26.0-32.0) pg MCHC (32.0-36.0) g/dL RDW Coeff of Dusty (10.0-15.0) % Plt Count (130-400) x10^3/uL Immature Gran % (Auto) (0.00-0.43) % Neut % (Auto) (50.0-80.0) % Lymph % (Auto) (25.0-50.0) % [place] % (Auto) (2.0-11.0) % Eos % (Auto) (0.0-4.0) % Baso % (Auto) (0.2-1.2) % Neut # (Auto) (1.8-7.7) x10^3/uL Lymph # (Auto) (1.0-4.8) x10^3/uL [place] # (Auto) (0.0-0.8) x10^3/uL Eos # (Auto) (0.0-0.5) x10^3/uL Baso # (Auto) (0.0-0.2) x10^3/uL Immature Gran # (Auto) (0.00-0.07) x10^3/uL Sodium (136-145) mmol/L Potassium (3.5-5.1) mmol/L Chloride (98-107) mmol/L Carbon Dioxide (21-32) mmol/L Anion Gap (5-15) mmol/L BUN (7-18) mg/dL Creatinine (0.70-1.30) mg/dL Est Cr Clr Drug Dosing Estimated GFR (MDRD) Glucose (70-99) mg/dL Lactic Acid (0.4-2.0) mmol/L Calcium (8.5-10.1) mg/dL Corrected Calcium (8.5-10.1) mg/dL Magnesium (1.8-2.4) mg/dL Total Bilirubin (0.2-1.0) mg/dL AST (15-37) U/L ALT (16-63) U/L Alkaline Phosphatase (46-116) U/L Ammonia (19-54) ug/dL Troponin I High Sens (<=76) ng/L C-Reactive Protein (<=0.9) mg/dL Total Protein (6.4-8.2) g/dL Albumin (3.4-5.0) g/dL Globulin Albumin/Globulin Ratio Lipase (73-393) U/L Urine Color Dark yellow H (YELLOW) Urine Appearance Slightly cloudy H (CLEAR) Urine pH 7.5 (5.0-8.0) Ur Specific [place] 1.020 Urine Protein 30 H (NEGATIVE) mg/dL Urine Glucose (UA) 100 H (NEGATIVE) mg/dL Urine Ketones Trace H (NEGATIVE) mg/dL Urine Occult Blood Negative (NEGATIVE) Urine Nitrite Negative (NEGATIVE) Urine Bilirubin Moderate H (NEGATIVE) Urine Urobilinogen >=8.0 H (0.2) EU/dL Ur Leukocyte Esterase Small H (NEGATIVE) U Hyaline Cast (Auto) Rare Urine RBC 0-5 (NOT SEEN) /HPF Urine WBC 5-10 H (NOT SEEN) /HPF Ur Squamous Epith Cells Rare (NOT SEEN) /HPF Urine Bacteria Not seen (NOT SEEN) /HPF Urine Mucus Few H (NOT SEEN) /LPF Urine Opiates Screen Negative (NEGATIVE) Ur Buprenorphine Scrn Negative (NEGATIVE) Ur Oxycodone Screen Negative (NEGATIVE) Urine Methadone Screen Negative (NEGATIVE) Ur Barbituates Screen Negative (NEGATIVE) Ur Phencyclidine Scrn Negative (NEGATIVE) Ur Amphetamines Screen Negative (NEGATIVE) U Methamphetamines Scrn Negative (NEGATIVE) Urine MDMA Screen Negative (NEGATIVE) U Benzodiazepines Scrn Negative (NEGATIVE) Urine Cocaine Screen Negative (NEGATIVE) U Marijuana (THC) Screen Negative (NEGATIVE) Ethyl Alcohol < 3 (0-3) mg/dL 04/07/21 Range/Units 06:55 WBC (4.0-10.0) x10^3/uL RBC (4.5-6.0) x10^6/uL Hgb (14.0-18.0) g/dL Hct (40.0-52.0) % MCV (78.0-93.0) fL MCH (26.0-32.0) pg MCHC (32.0-36.0) g/dL RDW Coeff of Dusty (10.0-15.0) % Plt Count (130-400) x10^3/uL Immature Gran % (Auto) (0.00-0.43) % Neut % (Auto) (50.0-80.0) % Lymph % (Auto) (25.0-50.0) % [place] % (Auto) (2.0-11.0) % Eos % (Auto) (0.0-4.0) % Baso % (Auto) (0.2-1.2) % Neut # (Auto) (1.8-7.7) x10^3/uL Lymph # (Auto) (1.0-4.8) x10^3/uL [place] # (Auto) (0.0-0.8) x10^3/uL Eos # (Auto) (0.0-0.5) x10^3/uL Baso # (Auto) (0.0-0.2) x10^3/uL Immature Gran # (Auto) (0.00-0.07) x10^3/uL Sodium (136-145) mmol/L Potassium (3.5-5.1) mmol/L Chloride (98-107) mmol/L Carbon Dioxide (21-32) mmol/L Anion Gap (5-15) mmol/L BUN (7-18) mg/dL Creatinine (0.70-1.30) mg/dL Est Cr Clr Drug Dosing Estimated GFR (MDRD) Glucose (70-99) mg/dL Lactic Acid (0.4-2.0) mmol/L Calcium (8.5-10.1) mg/dL Corrected Calcium (8.5-10.1) mg/dL Magnesium (1.8-2.4) mg/dL Total Bilirubin (0.2-1.0) mg/dL AST (15-37) U/L ALT (16-63) U/L Alkaline Phosphatase (46-116) U/L Ammonia 47 (19-54) ug/dL Troponin I High Sens (<=76) ng/L C-Reactive Protein (<=0.9) mg/dL Total Protein (6.4-8.2) g/dL Albumin (3.4-5.0) g/dL Globulin Albumin/Globulin Ratio Lipase (73-393) U/L Urine Color (YELLOW) Urine Appearance (CLEAR) Urine pH (5.0-8.0) Ur Specific [place] Urine Protein (NEGATIVE) mg/dL Urine Glucose (UA) (NEGATIVE) mg/dL Urine Ketones (NEGATIVE) mg/dL Urine Occult Blood (NEGATIVE) Urine Nitrite (NEGATIVE) Urine Bilirubin (NEGATIVE) Urine Urobilinogen (0.2) EU/dL Ur Leukocyte Esterase (NEGATIVE) U Hyaline Cast (Auto) Urine RBC (NOT SEEN) /HPF Urine WBC (NOT SEEN) /HPF Ur Squamous Epith Cells (NOT SEEN) /HPF Urine Bacteria (NOT SEEN) /HPF Urine Mucus (NOT SEEN) /LPF Urine Opiates Screen (NEGATIVE) Ur Buprenorphine Scrn (NEGATIVE) Ur Oxycodone Screen (NEGATIVE) Urine Methadone Screen (NEGATIVE) Ur Barbituates Screen (NEGATIVE) Ur Phencyclidine Scrn (NEGATIVE) Ur Amphetamines Screen (NEGATIVE) U Methamphetamines Scrn (NEGATIVE) Urine MDMA Screen (NEGATIVE) U Benzodiazepines Scrn (NEGATIVE) Urine Cocaine Screen (NEGATIVE) U Marijuana (THC) Screen (NEGATIVE) Ethyl Alcohol (0-3) mg/dL Meds: Medications Generic Name Dose Route Start Last Admin Trade Name Freq PRN Reason Stop Dose Admin Sodium Chloride 10 ml 04/07/21 05:23 Sodium Chloride 0.9% 10 Ml Syringe FLUSH ASDIRECTED PRN Keep Vein Open Discontinued Medications Generic Name Dose Route Start Last Admin Trade Name Freq PRN Reason Stop Dose Admin Hydromorphone HCl 0.5 mg 04/07/21 05:30 04/07/21 06:13 Hydromorphone 0.5 Mg/0.5 Ml Syringe IV 04/07/21 05:31 0.5 mg ONETIME ONE Administration Sodium Chloride 1,000 mls @ 999 mls/hr 04/07/21 05:23 Normal Saline IV 04/07/21 06:23 ONETIME ONE Ondansetron HCl 4 mg 04/07/21 05:23 04/07/21 06:12 Ondansetron 4 Mg/2 Ml Sdv IVPUSH 04/07/21 05:24 4 mg ONETIME ONE Administration - Radiology Interpretation Free Text/Narrative:: ct with without contrast. subtle perpancreatitic fat stranding can be seen with acute uncomplicated pancreatitis. multiple prominent loops of small bowel without transition point. Can be seen with enteritis/ileus. See report - Re-Assessments/Exams Free Text/Narrative Re-Assessment/Exam: 04/07/21 07:45 took over care of patient at change of [facility] from [facility]. Patient has history of alcohol abuse, liver failure, and is followed by GI. Developed new onset luq pain and presented. Was give iv fluids, pain medication, labs and urine done along with CT prior to change of shift. 04/07/21 07:52 Patient feels better with the dilaudid. Last normal bowel movement yesterday, food makes his pain worse. No vomiting. Has been taking tylenol for the pain. Has not returned to GI due to no insurance. Last drink in January when diagnosed with liver failure. no fevers or cough. Awaiting CT results. 04/07/21 08:[address] change on CT, discussed clear liquid diet, pain and nausea medications advance to brat diet. return for worsening. given precautions Departure - Departure Time of Disposition: 08:22 Condition: Good - Discharge Information *PRESCRIPTION DRUG MONITORING PROGRAM REVIEWED*: Not Applicable *COPY OF PRESCRIPTION DRUG MONITORING REPORT IN PATIENT WALTER: Not Applicable Sepsis Event Note (ED) - Focused Exam Vital Signs: Vital Signs Temp Pulse Resp BP Pulse Ox 04/07/21 05:00 37.0 C 100 18 123/75 98
[2021-04-07 06:22] LABS: BUPRENORPHINE,URINE NEGATIVE (NEGATIVE); MARIJUANA,URINE NEGATIVE (NEGATIVE); METHYLENEDIOXYMETHAMP,UR NEGATIVE (NEGATIVE); PHENCYCLIDINE,URINE NEGATIVE (NEGATIVE)
[2021-04-07 06:24] LABS: CHLORIDE,CL 103 mmol/L (98-107); SODIUM,NA 138 mmol/L (136-145)
[2021-04-07 06:29] LABS: ANION GAP 12.4 mmol/L (5-15)
--- NOTE | 2021-04-07 08:11 | CT ---
[id number] CT/CT Abdomen Pelvis WWO IV EXAM: CT Abdomen Pelvis WWO IV CLINICAL DATA: ABD PAIN COMPARISON STUDY: 02/15/2021. FINDINGS: Lung bases are clear. Mild peripancreatic fat stranding. No fluid collection or free fluid. No evidence of portal vein thrombosis or splenic artery aneurysm. Subtle nodular contour of the liver. The spleen is prominent in size. The gallbladder, adrenal glands and kidneys are unremarkable. Multiple prominent loops of small bowel without transition point. [id number] amount of retained stool within the colon. No lymphadenopathy, free fluid, or pneumoperitoneum. No fracture or osseous lesion. IMPRESSION: 1. Subtle peripancreatic fat stranding can be seen with acute uncomplicated pancreatitis. 2. Multiple prominent loops of small bowel without transition point. Findings could be seen with enteritis/ileus. Ventura Woodward DO 04/07/21 [id number] Thank you for allowing us to participate in the care of your patient.
[2021-04-07] MEDS ORDERED: HYDROmorphone 1 MG/ML Syringe IVPUSH ONE (08:36)
== END 2021-04-07 09:10 | disposition home or self-care (01) ==
LOC: VM.ED 05:00
DX: K85.90 Acute pancreatitis without necrosis or infection, unspecified (principal); K56.7 Ileus, unspecified; E11.9 Type 2 diabetes mellitus without complications; Z88.0 Allergy status to penicillin; Z79.84 Long term (current) use of oral hypoglycemic drugs
CPT/HCPCS: 36415; 74178; 80053; 80305; 80307; 81001; 82140; 83605; 83690; 83735; 84484; 85025; 86140; 87086; 93005; 96374; 96375; 96376; 99284; J1170; J2405; J7030

== ENCOUNTER 2021-04-20 21:57 | Emergency (ER) | payer MEDICAID ==
[2021-04-20 22:41] LABS: ANION GAP 12.9 mmol/L (5-15); CHLORIDE,CL 102 mmol/L (98-107); SODIUM,NA 137 mmol/L (136-145)
[2021-04-20] MEDS ORDERED: Ketorolac 30 MG/ML SDV IM ONE (23:04)
[2021-04-20] MEDS ORDERED: Bisacodyl 5 MG Tab PO ONE (23:08)
--- NOTE | 2021-04-20 23:09 | EDM.PDOC ---
ED HPI GENERAL MEDICAL PROBLEM - General Chief Complaint: Abdominal Pain Stated Complaint: STOMACH PAIN Time Seen by Provider: 04/20/21 22:10 Source of Information: Reports: Patient History Limitations: Reports: No Limitations - History of Present Illness INITIAL COMMENTS - FREE TEXT/NARRATIVE: Pedro Luis is a 30 year old male who presents to ER with complaints of increased abdominal pain. Has history of pancreatitis, was diagnosed in early March. Was advised to watch his dietary intake, more fluids, less fatty foods. Has history of liver failure as well. Had a CT scan done here at that time that did show pancreatitis, lipase was quite normal. Was seen by GI today. Was told was constipation and started on Miralax. They would not fill his [place] for him and thought that he could get filled here tonight as was given that with his last visit here. Is due to have a follow up CT with GI on Saturday. No nausea. Has been trying to eat but causes some discomfort. Drinking chicken broth and juices. No fevers. Does feel bloated. No vomiting. Has not had a BM in 4 days. Onset: Gradual Duration: Day(s):, Waxing/Waning Location: Reports: Abdomen Quality: Reports: Ache Severity: Moderate Improves with: Reports: Medication Associated Symptoms: Denies: Confusion, Chest Pain, Cough, Fever/Chills, Headaches, Loss of Appetite, Malaise, Nausea/Vomiting, Shortness of Breath, Syncope, Weakness Treatments PREFLIGHT INSPECTOR: Reports: Other Medication(s) Other Treatments PREFLIGHT INSPECTOR: hydrocodone Abdominal Pain Score (Numeric/FACES): 10 - Related Data Allergies Allergy/AdvReac Type Severity Reaction Status Date / Time amoxicillin [From Augmentin] Allergy Severe Hives Verified 04/20/21 22:09 clavulanic acid Allergy Severe Hives Verified 04/20/21 22:09 [From Augmentin] Home Meds: Home Meds Meloxicam 7.5 mg PO DAILY 02/15/21 [History] metFORMIN [Glucophage] 500 mg PO BID 02/15/21 [History] Hydrocodone/Acetaminophen [HYDROcodone-Acetaminophen 10-325 MG] 1 each PO Q6H PRN #25 tablet 04/07/21 [Rx] Ondansetron [Zofran ODT] 4 mg PO Q6H PRN #15 tab.dis 04/07/21 [Rx] Past Medical History Respiratory History: Reports: Asthma Gastrointestinal History: Reports: Cirrhosis (admits to history of heavy alcohol use, has not drank now since end january), Pancreatitis Musculoskeletal History: Reports: Fracture, Other (See Below) Other Musculoskeletal History: Rught humerous closed Fx Psychiatric History: Reports: Addiction Other Psychiatric History: ETOH abuse, reports last drink 02/08/21 Endocrine/Metabolic History: Reports: Diabetes, Type II - Infectious Disease History Infectious Disease History: Reports: Hepatitis C Social & Family History - Family History Family Medical History: No Pertinent Family History - Tobacco Use Tobacco Use Status *Q: Never Tobacco User - Caffeine Use Caffeine Use: Reports: None - Recreational Drug Use Recreational Drug Use: No ED ROS GENERAL - Review of Systems Review Of Systems: See Below Constitutional: Reports: Malaise. Denies: Fever, Chills, Weakness, Fatigue, Decreased Appetite HEENT: Denies: Ear Pain, Rhinitis, Sinus Problem, Throat Pain Respiratory: Denies: Shortness of Breath, Cough Cardiovascular: Denies: Chest Pain, Edema, Lightheadedness Endocrine: Denies: Fatigue GI/Abdominal: Reports: Abdominal Pain, Constipation. Denies: Nausea, Vomiting : Reports: No Symptoms Musculoskeletal: Reports: No Symptoms Skin: Reports: No Symptoms Neurological: Reports: No Symptoms ED EXAM, GI/ABD - Physical Exam Exam: See Below Exam Limited By: No Limitations General Appearance: Alert, WD/WN, No Apparent Distress Ears: Normal External Exam, Normal TMs Nose: Normal Inspection, Normal Mucosa, No Blood Throat/Mouth: Normal Inspection, Normal Oropharynx Head: Normocephalic Neck: Normal Inspection, Supple, Non-Tender Respiratory/Chest: No Respiratory Distress, Lungs Clear, Normal Breath Sounds Cardiovascular: Regular Rate, Rhythm GI/Abdominal Exam: Soft, Tender (upper quadrants), Abnormal Bowel Sounds Extremities: Normal Inspection, No Pedal Edema Neurological: Alert, Oriented Skin Exam: Warm, Dry Course - Vital Signs Last Recorded V/S: Last Vital Signs Temp 98.2 F 04/20/21 22:03 Pulse 82 04/20/21 22:03 Resp 16 04/20/21 22:03 BP 131/76 04/20/21 22:03 Pulse Ox 97 04/20/21 22:03 - Orders/Labs/Meds Orders: Active Orders 24 hr Category Date Time Status Abdomen 2V AP Flat Upright [CR] Stat Exams 04/20/21 22:10 Ordered Labs: Laboratory Tests 04/20/21 04/20/21 04/20/21 Range/Units 22:21 22:21 22:38 WBC 4.9 (4.0-10.0) x10^3/uL RBC 3.51 L (4.5-6.0) x10^6/uL Hgb 12.2 L (14.0-18.0) g/dL Hct 33.8 L (40.0-52.0) % MCV 96.3 H (78.0-93.0) fL MCH 34.8 H (26.0-32.0) pg MCHC 36.1 H (32.0-36.0) g/dL RDW Coeff of Dusty 11.8 (10.0-15.0) % Plt Count 112 L (130-400) x10^3/uL Immature Gran % (Auto) 0.00 (0.00-0.43) % Neut % (Auto) 40.4 L (50.0-80.0) % Lymph % (Auto) 47.8 (25.0-50.0) % Tucker % (Auto) 9.4 (2.0-11.0) % Eos % (Auto) 1.8 (0.0-4.0) % Baso % (Auto) 0.6 (0.2-1.2) % Neut # (Auto) 2.0 (1.8-7.7) x10^3/uL Lymph # (Auto) 2.3 (1.0-4.8) x10^3/uL Tucker # (Auto) 0.5 (0.0-0.8) x10^3/uL Eos # (Auto) 0.1 (0.0-0.5) x10^3/uL Baso # (Auto) 0.0 (0.0-0.2) x10^3/uL Immature Gran # (Auto) 0.00 (0.00-0.07) x10^3/uL Sodium 137 (136-145) mmol/L Potassium 3.9 (3.5-5.1) mmol/L Chloride 102 (98-107) mmol/L Carbon Dioxide 26 (21-32) mmol/L Anion Gap 12.9 (5-15) mmol/L BUN 7 (7-18) mg/dL Creatinine 0.8 (0.70-1.30) mg/dL Est Cr Clr Drug Dosing 127.38 mL/min Estimated GFR (MDRD) > 60 Glucose 232 H (70-99) mg/dL Calcium 8.5 (8.5-10.1) mg/dL Corrected Calcium 9.5 (8.5-10.1) mg/dL Total Bilirubin 2.2 H (0.2-1.0) mg/dL AST 43 H (15-37) U/L ALT 27 (16-63) U/L Alkaline Phosphatase 81 (46-116) U/L C-Reactive Protein 2.0 H (<=0.9) mg/dL Total Protein 8.0 (6.4-8.2) g/dL Albumin 2.8 L (3.4-5.0) g/dL Globulin 5.2 Albumin/Globulin Ratio 0.54 Amylase 9 L (25-115) U/L Lipase 22 L (73-393) U/L Urine Color Dark yellow H (YELLOW) Urine Appearance Clear (CLEAR) Urine pH 7.0 (5.0-8.0) Ur Specific Johnson 1.020 Urine Protein Negative (NEGATIVE) mg/dL Urine Glucose (UA) 500 H (NEGATIVE) mg/dL Urine Ketones Trace H (NEGATIVE) mg/dL Urine Occult Blood Negative (NEGATIVE) Urine Nitrite Negative (NEGATIVE) Urine Bilirubin Small H (NEGATIVE) Urine Urobilinogen >=8.0 H (0.2) EU/dL Ur Leukocyte Esterase Negative (NEGATIVE) - Re-Assessments/Exams Free Text/Narrative Re-Assessment/Exam: 04/20/21 23:15 Labs do show elevated liver enzymes, glucose. Lipase and amylase are actually low. Xray shows constipation. Other labs overall unremarkable. Did advise patient. Discharge discussed. Departure - Departure Time of Disposition: 23:16 Disposition: Home, Self-Care 01 Condition: Fair Clinical Impression: Abdominal pain, Constipation - Discharge Information *PRESCRIPTION DRUG MONITORING PROGRAM REVIEWED*: No *COPY OF PRESCRIPTION DRUG MONITORING REPORT IN PATIENT WALTER: No Instructions: Chronic Constipation, Abdominal Pain, Adult Referrals: PCP,None [Primary Care Provider] - Additional Instructions: 1. PUsh fluids 2. [place] diet 3. Take miralax daily 4. If no relief with dulcolax tab tonight, may get at drug store and repeat in am 5. Establish care with a primary care provider for follow up. Will need to ad dress high blood sugar and follow 6. See GI on Saturday as previously scheduled 7. Ibuprofen for discomfort Sepsis Event Note (ED) - Evaluation Sepsis Screening Result: No Definite Risk - Focused Exam Vital Signs: Vital Signs Temp Pulse Resp BP Pulse Ox 04/20/21 22:03 98.2 F 82 16 131/76 97 - My Orders Last 24 Hours: My Active Orders 04/20/21 22:10 Abdomen 2V AP Flat Upright [CR] Stat - Assessment/Plan Last 24 Hours: My Active Orders 04/20/21 22:10 Abdomen 2V AP Flat Upright [CR] Stat
--- NOTE | 2021-04-21 08:37 | CR ---
[id number] RAD/RAD Abd Flat and Upright 2V EXAM: RAD Abd Flat and Upright 2V INDICATION: ABDOMINAL PAIN COMPARISON: None. Discussion/Impression: Unobstructed bowel gas pattern. No radiographically evident pneumoperitoneum. Moderate colonic stool volume. Correlate for constipation. Joe Vazquez MD 04/21/21 [id number] Thank you for allowing us to participate in the care of your patient.
== END 2021-04-20 22:45 | disposition home or self-care (01) ==
LOC: VM.ED 21:57
DX: K59.00 Constipation, unspecified (principal); E11.9 Type 2 diabetes mellitus without complications; Z88.0 Allergy status to penicillin; Z79.84 Long term (current) use of oral hypoglycemic drugs
CPT/HCPCS: 36415; 74019; 80053; 81003; 82150; 83690; 85025; 86140; 96372; 99284-25; A9270-GY; J1885

== ENCOUNTER 2021-08-09 09:13 | Emergency (ER) | payer BC, MEDICAID | END 2021-08-09 10:00 | disposition home or self-care (01) | LOC: VM.ED 09:13 | DX: S90.121A Contusion of right lesser toe(s) without damage to nail, initial encounter (principal); E11.9 Type 2 diabetes mellitus without complications; J45.909 Unspecified asthma, uncomplicated; Z88.0 Allergy status to penicillin; W22.09XA Striking against other stationary object, initial encounter | CPT/HCPCS: 73660-T9; 99283 ==

== ENCOUNTER 2021-08-10 08:01 | Emergency (ER) | payer MEDICAID ==
[2021-08-10 08:42] LABS: BARBITURATE SCREEN,URINE NEGATIVE (NEGATIVE); BUPRENORPHINE SCREEN,URINE NEGATIVE (NEGATIVE)
[2021-08-10 08:43] LABS: BENZODIAZEPINES SCREEN,URINE NEGATIVE (NEGATIVE); METHAMPHETAMINE SCREEN, URINE NEGATIVE (NEGATIVE); THC SCREEN,URINE 50 NG/ML POSITIVE (NEGATIVE)
[2021-08-10 08:59] LABS: CHLORIDE,CL 103 mmol/L (98-107); SODIUM,NA 142 mmol/L (136-145)
[2021-08-10 09:01] LABS: ANION GAP 14.6 mmol/L (5-15)
== END 2021-08-10 16:29 | disposition other institution (70) ==
LOC: VM.ED 08:01
DX: F10.10 Alcohol abuse, uncomplicated (principal); Z20.822 Contact with and (suspected) exposure to COVID-19; E11.9 Type 2 diabetes mellitus without complications; Z79.4 Long term (current) use of insulin; Z88.0 Allergy status to penicillin; Z88.1 Allergy status to other antibiotic agents; Y90.6 Blood alcohol level of 120-199 mg/100 ml
CPT/HCPCS: 36415; 80053; 80305-QW; 80307; 81001; 82150; 83690; 85025; 86140; 99284; 99285

== ENCOUNTER 2021-09-10 02:25 | Emergency (ER) | payer MEDICAID | END 2021-09-10 02:40 | LOC: VM.ED 02:25 | DX: Z00.8 Encounter for other general examination (principal); E11.9 Type 2 diabetes mellitus without complications; Z88.0 Allergy status to penicillin; Z79.4 Long term (current) use of insulin | CPT/HCPCS: 99283 ==

== ENCOUNTER 2021-09-10 11:53 | Emergency (ER) | payer MEDICAID ==
[2021-09-10] MEDS: Dicyclomine 10 MG Cap PO ONE (12:30)
[2021-09-10] MEDS: Dicyclomine 10 MG Cap ONE (12:48)
[2021-09-10] MEDS: Ondansetron 4 MG/2 ML SDV IVPUSH ONE (12:53)
[2021-09-10] MEDS: Ketorolac 30 MG/ML SDV IVPUSH ONE (12:53)
[2021-09-10 12:58] LABS: CHLORIDE,CL 106 mmol/L (98-107); SODIUM,NA 142 mmol/L (136-145)
[2021-09-10 13:01] LABS: ANION GAP 12.8 mmol/L (5-15)
[2021-09-10] MEDS: Ondansetron 8 MG in Sodium Chloride 0.9% 100 ML IV ONE (13:35)
== END 2021-09-10 13:30 ==
LOC: VM.ED 11:53
DX: R10.84 Generalized abdominal pain (principal); G89.29 Other chronic pain; E11.9 Type 2 diabetes mellitus without complications; Z88.0 Allergy status to penicillin; Z88.1 Allergy status to other antibiotic agents
CPT/HCPCS: 80053; 81001; 82150; 83690; 85025; 96374; 96375; 99284; 99284-25; A9270-GY; J1885; J2405